=== PATIENT | female | born 1995 | race Caucasian/White ===

== ENCOUNTER 2018-06-01 07:59 | Day surgery (SDC) | payer BC ==
[2018-06-01] MEDS ORDERED: Propofol 200 MG/20 ML SDV ONE (08:47)
[2018-06-01] MEDS ORDERED: Midazolam 1 MG/ML 2 ML SDV ONE (08:47)
[2018-06-01] MEDS ORDERED: fentaNYL 100 MCG/2 ML SDV ONE (08:47)
[2018-06-01] MEDS ORDERED: Lactated Ringers 1,000 ML IV SCH (09:30)
--- NOTE | 2018-06-01 11:44 | OR ---
DATE OF PROCEDURE: 06/01/2018 PREOPERATIVE DIAGNOSES: Upper abdominal pain, nausea, history of Helicobacter pylori infection, use of a proton pump inhibitor. POSTOPERATIVE DIAGNOSES: Upper abdominal pain, nausea, history of Helicobacter pylori infection, use of a proton pump inhibitor. PROCEDURE PERFORMED: Esophagogastroduodenoscopy with antral biopsies for CLOtest and for pathology to look for Helicobacter pylori. ANESTHESIA: IV anesthesia with monitored anesthesia care. INDICATION: This 22-year-old white female is referred for upper endoscopy because of upper abdominal pain and nausea. Food seems to make the pain worse. She has a history of Helicobacter pylori infection. She is taking a proton pump inhibitor. I counseled her for upper endoscopy with possible biopsy including risks, alternatives, and she gave her informed consent to proceed. DESCRIPTION OF PROCEDURE: The patient was placed in the left lateral decubitus position. IV anesthesia was administered by the Anesthesia Service. Time-out was held. The flexible video Olympus upper endoscope was passed through her mouth down her esophagus and into her stomach. The scope was easily passed through the pylorus into the duodenum reaching its third portion. The scope was then slowly withdrawn examining the mucosa throughout. The duodenal mucosa appeared unremarkable. The scope was brought back through the pylorus into the antrum. This appeared unremarkable. Possibly, there was a fine erythema present. We did obtain antral biopsies for CLOtest and for pathology to look for Helicobacter pylori because of the possible fine erythema and her history of Helicobacter pylori infection, as well as her symptoms. The scope was retroflexed. The proximal stomach appeared unremarkable. The scope was straightened and brought up to the GE junction. This appeared unremarkable. The scope was then brought up through the unremarkable-appearing esophagus and was removed. She tolerated the procedure well. Don Sepulveda MD /[id number]
== END 2018-06-01 10:45 | disposition home or self-care (01) ==
LOC: JP.SDS 07:59
PROVIDERS: ATTEND Surgery
DX: K29.50 Unspecified chronic gastritis without bleeding (principal); K21.9 Gastro-esophageal reflux disease without esophagitis; E66.9 Obesity, unspecified
CPT/HCPCS: 43239; 81025; 87081; 88305; J2250; J2704; J3010